=== PATIENT | female | born 1995 | race Two or more races ===

== ENCOUNTER 2024-08-13 03:32 | Emergency (ER) | payer MEDICAID, SELFPAY ==
[2024-08-13 00:49] VITALS: BMI 30.3
[2024-08-13 01:00] VITALS: BP 96/50; PULSE 85; RESP 19; TEMP 36.7; O2SAT 98
[2024-08-13 01:16] VITALS: BP 95/62; PULSE 77
[2024-08-13 01:19] VITALS: BMI 19.5
[2024-08-13 01:20] VITALS: TEMP 36.5
--- NOTE | 2024-08-13 03:43 | PC.NURSE ---
Pt was sent down from OB but never checked in with triage nurse. per registration pt was seen walking out of the er and not returning to get seen by ER provider.
== END 2024-08-13 03:46 | disposition left against medical advice (07) ==
LOC: SERX 03:42
PROVIDERS: Emergency Provider Emergency Medicine
DX: O99.891 Other specified diseases and conditions complicating pregnancy (principal); R51.9 Headache, unspecified; Z3A.30 30 weeks gestation of pregnancy; Z53.29 Procedure and treatment not carried out because of patient's decision for other reasons
CPT/HCPCS: 59025; 99281

== ENCOUNTER 2024-08-15 19:00 | Observation (INO) | payer MEDICAID, SELFPAY ==
[2024-08-15 19:10] VITALS: BP 104/66; PULSE 77
[2024-08-15 19:14] VITALS: BMI 19.7
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
[2024-08-15 19:47] VITALS: TEMP 37.1
[2024-08-15 21:39] VITALS: BP 93/55; PULSE 77
[2024-08-15 22:10] VITALS: BP 110/57; PULSE 83
[2024-08-16] VITALS (9 sets, daily range): BP systolic 89–103; BP diastolic 54–66; PULSE 76–107; RESP 16; TEMP 36.5
[2024-08-16] MEDS: RINGERS LACTATED 1000 ML 1,000 ML 999 ML IV (06:09)
[2024-08-16] MEDS: NIFEdipine 10 MG CAPSULE 20 MG PO (06:48)
[2024-08-16] MEDS: BETAMET ACET/BETAMET NA PH (Celestone) 6 MG/ML VIAL 12 MG IM (06:53)
--- NOTE | 2024-08-16 07:23 | PC.NURSE ---
pt AAOX3, denies LOF, BLOOD AND DISCHARGE. PT DENIES HEADACHE, AND VISION CHANGES. TEMP WITHIN NORMAL RANGE. T-97.7F.BP LOW. PT STATED THIS IS HER NORMAL RANGE. PT INSTRUCTED TO NOTIFY NURSE OF ANY CHANGES.
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
[2024-08-16] MEDS: SODIUM CHLORIDE 0.9% 1000 ML 1,000 ML 999 ML IV (10:02)
[2024-08-16] MEDS: SODIUM CHLORIDE 0.9% 1000 ML 1,000 ML 125 ML IV (11:08)
== END 2024-08-16 13:05 | disposition home or self-care (01) ==
PROVIDERS: Admitting Provider Obstetrics & Gynecology; PCP Family Medicine; Visit Provider Obstetrics & Gynecology
DX: O9A.213 Injury, poisoning and certain other consequences of external causes complicating pregnancy, third trimester (principal); S39.92XA Unspecified injury of lower back, initial encounter; V89.2XXA Person injured in unspecified motor-vehicle accident, traffic, initial encounter; O09.93 Supervision of high risk pregnancy, unspecified, third trimester; O34.219 Maternal care for unspecified type scar from previous cesarean delivery; Z3A.31 31 weeks gestation of pregnancy
CPT/HCPCS: 59025; 59899; 76805; 96360; 96372; J0702; J7030; J7120; A9270

== ENCOUNTER 2024-09-10 18:17 | Observation (INO) | payer MEDICAID, SELFPAY ==
[2024-09-10] VITALS (22 sets, daily range): BP systolic 98; BP diastolic 67; PULSE 85–105; RESP 20; TEMP 36.4; O2SAT 93–100; BMI 19.8
--- NOTE | 2024-09-10 18:39 | XR_ITS ---
Examination: Complete OB ultrasound greater than 14 weeks Date and time of exam: September 10, 2024 1904 hrs. Indications: Labor evaluation with pelvic contractions and vaginal bleeding today Findings: Viable intrauterine single fetus with single amniotic sac presentation cephalic Cardiac motion 147 BPM Placenta fundal grade 2 Umbilical cord insertion 3 vessel seen Amniotic fluid index 12.2 cm Cervix 3.7 cm. Composite estimated gestational age based on BPD, head circumference, abdominal circumference, femur length is 35 weeks 0 days Estimated weight 2491.1 g Ovaries obscured by bowel gas. Survey of intracranial anatomy, spinal anatomy, abdominal anatomy, four-chamber heart performed with no abnormalities identified. Impression: Viable intrauterine gestation cephalic presentation Placenta fundal grade 2 no abruption Estimated gestational age 35 weeks 0 days Estimated weight 2491.1 g.
[2024-09-10] MEDS: RINGERS LACTATED 1000 ML 1,000 ML 999 ML IV (20:15)
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
[2024-09-10 21:41] LABS: Bilirubin,Urine Negative (Negative); Blood,Urine Negative (Negative); Clarity,Urine Clear (Clear/Hazy); Glucose, Urine 3+ (Negative); Ketones,Urine Negative (Negative); Leukocyte Esterase,Urine Negative (Negative); Nitrite,Urine Negative (Negative); PH,Urine 7.5 (5.0-7.0); Protein,Urine Negative (Neg - Trace); RBC,Urine 1 /hpf (0-3); Specific Gravity,Urine 1.015 (1.001-1.035); Squamous Epithelial Cell,Urine 3 /hpf (0-5); WBC,Urine < 1 /hpf (0-5)
[2024-09-10 21:49] LABS: Collection Type, Urine CLEAN BATCH; Color,Urine Yellow (Lt Yel-Yel)
== END 2024-09-10 21:00 | disposition home or self-care (01) ==
PROVIDERS: Admitting Provider Obstetrics & Gynecology; PCP Family Medicine; Visit Provider Obstetrics & Gynecology
DX: O26.893 Other specified pregnancy related conditions, third trimester (principal); R10.2 Pelvic and perineal pain; Z3A.35 35 weeks gestation of pregnancy
CPT/HCPCS: 59025; 59899; 76805; 81001; J7120

== ENCOUNTER 2024-09-20 15:04 | Observation (INO) | payer MEDICAID, SELFPAY ==
[2024-09-20 15:04] VITALS: BP 107/72; RESP 16; RESP 99; TEMP 36.7
[2024-09-20 15:16] VITALS: BP 107/72; PULSE 88
[2024-09-20 15:28] VITALS: BMI 20.2
[2024-09-20 15:31] LABS: ROM Kit Lot # 57809118
[2024-09-20 15:32] LABS: ROM Swab Mixed By: LOEFL; Rupture of Fetal Membranes Negative (Negative); Swb Mxed in Solvent 1 min? Yes
[2024-09-20] MEDS: RINGERS LACTATED 1000 ML 1,000 ML 999 ML IV (15:50)
[2024-09-20 16:04] LABS: Collection Type, Urine Clean Catch
[2024-09-20 16:18] VITALS: PULSE 88
[2024-09-20] MEDS: TERBUTALINE SULF INJ 1 MG/ML VIAL 0.25 MG SC (16:18)
[2024-09-20 16:23] LABS: Bacteria,Urine Rare; Bilirubin,Urine Negative (Negative); Blood,Urine Negative (Negative); Clarity,Urine Clear (Clear/Hazy); Color,Urine Yellow (Lt Yel-Yel); Glucose, Urine Trace (Negative); Ketones,Urine Trace (Negative); Leukocyte Esterase,Urine Positive (Negative); Nitrite,Urine Negative (Negative); PH,Urine 6.5 (5.0-7.0); Protein,Urine 1+ (Neg - Trace); RBC,Urine 1 /hpf (0-3); Specific Gravity,Urine 1.029 (1.001-1.035); Squamous Epithelial Cell,Urine 8 /hpf (0-5); WBC,Urine 3 /hpf (0-5)
[2024-09-20 16:41] VITALS: BP 108/59; PULSE 101
[2024-09-20 17:18] VITALS: BP 117/73; PULSE 96
--- NOTE | 2024-09-20 17:57 | PD.LDPN ---
Documentation for date of: 09/20/24 OB Labor Progress Note Pain Control Comments: 29 yo at 36+1 presents with contractions. Preg c/b Hx of prior CD at term Patient has been having contractions, last seen at 34 weeks and FT dilated. No bleeding. Does report some LOF. Normal movement. She has missed some appointments recently due to being rescheduled. Pelvic Exam Comments: GEN: NAD RESP: normal work of breathing ABDsoft, gravid, non tender over prior incision EXT: no calf swelling SVE: 1cm/FT, long, high FHT: Reactive, mod variability [place]: irregular -> s/p IV hydration -> quiet AMnisure: negative Assessment and Plan Comments: 29 yo at 36+1 presents with contractions with no signs of labor or rupture of membranes. contractions, now resolved - Resolved after IVF and terb x1 - No signs of PTL with multiple serial SVE (also unchanged from 34 weeks) - No signs of uterine rupture clinically, on FHT, or on exam - Discharged home in stable condition with close follow-up- strongly recommended earlier follow-up given contractions in the setting of c/s x1. Return precautions reviewed FWB: Reactive, normal baseline, no decels
== END 2024-09-20 18:15 | disposition home or self-care (01) ==
PROVIDERS: Admitting Provider Obstetrics & Gynecology; Visit Provider Obstetrics & Gynecology
DX: O47.03 False labor before 37 completed weeks of gestation, third trimester (principal); Z3A.34 34 weeks gestation of pregnancy
CPT/HCPCS: 59025; 59899; 81001; 84112; 96372; J3105; J7120

== ENCOUNTER 2024-10-27 17:48 | Emergency (ER) | payer MEDICAID, SELFPAY ==
[2024-10-27 19:22] VITALS: BP 101/72; PULSE 90; RESP 18; TEMP 36.8; O2SAT 99
--- NOTE | 2024-10-27 19:45 | XR_ITS ---
Examination: Breast ultrasound, unilateral, right Date and time of exam: October 27, 2024 at 2026 hrs. Indications: Right breast swelling and tenderness beginning 2 days ago, patient is nursing Technique: Real-time flores scale ultrasonographic imaging performed right breast including all 4 quadrants as well as nipple retroareolar and axillary region. Findings: No cystic or solid mass no abscess Prominent ducts in the retroareolar region redness in the 5 to 10:00 position, possible mastitis Impression: No breast abscess noted
--- NOTE | 2024-10-27 19:46 | PD.EDRME ---
Rapid Medical Screening Exam RME Arrival date/time: 10/27/24 17:48 29-year-old female with breast implants and currently nursing reports with complaint of right breast swelling and pain x 2 days Chief Complaint: General Adult/Misc Complain Time Seen by Provider: 10/27/24 17:56 Vital signs: Vital Signs Temperature 98.2 F 10/27/24 19:22 Pulse Rate 90 10/27/24 19:22 Respiratory Rate 18 10/27/24 19:22 Blood Pressure 101/72 10/27/24 19:22 Pulse Oximetry (%) 99 10/27/24 19:22 Oxygen Delivery Method Room Air 10/27/24 19:22
[2024-10-27] MEDS: KETOROLAC INJ 60 MG/2 ML VIAL 30 MG IM (20:51)
[2024-10-27 22:59] LABS: Red Blood Count 4.95 Miln/mm3 (4.00-5.20); White Blood Count 13.2 Thou/mm3 (3.6-11.0)
[2024-10-27 23:00] LABS: Basophils % (Auto) 0 % (0-2.5); Eosinophils # (Auto) 0.1 Thou/mm3 (0.0-0.5); Eosinophils % (Auto) 1 % (0-10); Hematocrit 39.4 % (36.0-46.0); Hemoglobin 12.1 g/dL (12.0-16.0); Immature Granulocytes % (Auto) 0 % (0-0); Immature Granulocytes Auto 0.05 Thou/mm3 (0.00-0.00); Lymphocytes # (Auto) 0.9 Thou/mm3 (1.0-4.8); Lymphocytes % (Auto) 7 % (10-50); Mean Corpuscular HGB Conc 30.7 g/dl (31.0-37.0); Mean Corpuscular Hemoglobin 24.4 pg (25.0-35.0); Mean Corpuscular Volume 80 fL (80-100); Monocytes # (Auto) 0.8 Thou/mm3 (0.0-0.8); Monocytes % (Auto) 6 % (0-12); Neutrophils # (Auto) 11.3 Thou/mm3 (1.8-7.7); Neutrophils % (Auto) 86 % (37-80); Nucleated Red Blood Cell % 0 /100 WBC (0); Platelet Count 296 Thou/mm3 (140-440); RDW Standard Deviation 43.7 fL (36.4-46.3)
[2024-10-27 23:01] LABS: Anion Gap 9 (7-16); BUN/Creatinine Ratio 15 Ratio (12-20); Blood Urea Nitrogen 12 mg/dL (9-23); Calcium 9.6 mg/dL (8.3-10.6); Carbon Dioxide 26.3 mMol/L (20.0-31.0); Chloride 105 mMol/L (98-107); Creatinine (Component) 0.8 mg/dL (0.6-1.3); Glucose 132 mg/dL (74-106); Osmolality,Calculated 281 (275-295); Potassium 3.7 mMol/L (3.4-5.1); Sodium 140 mMol/L (136-145); eGFR > 60 See Note
[2024-10-27 23:06] VITALS: BP 118/76; PULSE 115; RESP 20; TEMP 38.2; O2SAT 97
--- NOTE | 2024-10-27 23:23 | PD.EDADULT ---
ED General RME/HPI General Chief complaint: General Adult/Misc Complain Stated complaint: RIGHT BREAST PAIN, SWELLING, DISCOLORATION Time Seen by Provider: 10/27/24 17:56 Arrival date/time: 10/27/24 17:48 29-year-old female with a history of breast implants and currently nursing a 3-week-old presents with complaint of right breast swelling and pain x 2 days. Patient denies any fever or chills discharge from nipples redness or abnormal shaped lumps or masses. Patient states the pain has gotten increasingly worse over the last 24 hours. Patient states that she has been taken Tylenol with no improvement of symptoms RME / HPI RME / HPI narrative: 10/27/24 17:48 29-year-old female with breast implants and currently nursing reports with complaint of right breast swelling and pain x 2 days Related Data Home Medications ?Medication ?Instructions ?Recorded ?Confirmed vit no.95-ferrous 1 tab PO DAILY 04/27/24 09/20/24 fumarate 28 mg-folic acid 800 mcg tablet () Previous Rx's ?Medication ?Instructions ?Recorded sulfamethoxazole 800 1 tab PO BID 10 days #20 tabs 10/27/24 mg-trimethoprim 160 mg tablet (Bactrim DS) Allergies Allergy/AdvReac Type Severity Reaction Status Date / Time No Known Drug Allergies Allergy Verified 09/20/24 15:32 Review of Systems Constitutional Constitutional: Denies chills, Denies fever(s) and Denies headache(s) ENT Ears, Nose, Mouth, and Throat: Denies headache(s), Denies neck pain and Denies vertigo Cardiovascular Cardiovascular: Denies chest pain, Denies claudication and Denies dyspnea Respiratory Respiratory: Denies cough and Denies dyspnea Gastrointestinal Gastrointestinal: Denies nausea and Denies vomiting Genitourinary Genitourinary: Denies nipple discharge Musculoskeletal Musculoskeletal: Denies myalgias and Denies neck pain Integumentary/Breasts Skin/Breast: Denies breast mass, Reports breast pain, Reports breast swelling and Denies nipple discharge Neurologic Neurologic: Denies headache(s) and Denies vertigo Hematologic/Lymphatic Hematologic/Lymphatic: Denies easy bleeding and Denies easy bruising Course Course Course Narrative: 26-year-old female with a history of breast implants and is currently nursing a 3-week old reports with complaint of right breast symptoms. Patient's CBC indicates elevated white cell count BMP unremarkable ultrasound of the right breast shows intact implant however mastitis is noted. Patient reports that she also feeds the child Enfamil formula and will stop breast-feeding until treatment with the antibiotics is complete. She also reports that her surgeon is located in [facility] she does have an appointment with that doctor within 24 hours. She is currently stable nontoxic-appearing with stable vital signs. Discussed treatment plan with Dr. HAMMER who agreed that the patient can be discharged home on oral medications but she is advised that if symptoms should worsen she is to return to the emergency department immediately for inpatient treatment as she will have failed outpatient treatment. Pt verbalized understanding Quality Measures none Orders Category Date Time Status US breast RT complete Stat Exams 10/27/24 19:45 Completed BMP [Basic Metabolic Panel] Stat Lab 10/27/24 22:38 Completed CBC Stat Lab 10/27/24 22:38 Completed HYDROcodone*/APAP 5/325 [[place] 5/325] Med 10/27/24 23:00 Discontinued 1 tab PO X1 ONE Ketorolac Inj [Toradol Inj] Med 10/27/24 19:44 Discontinued 30 mg IM X1 ONE Trimethoprim/Sulfa 160/800 Ds [Bactrim Ds] Med 10/27/24 23:20 Discontinued 1 tab PO X1 ONE cefTRIAXone [Rocephin] 2 gm Med 10/27/24 23:11 Discontinued SODIUM CHLORIDE 0.9% (Popper) [NS 0.9% (Popper)] 50 ml IV QDAY Vital Signs Vital signs: Vital Signs Temperature 98.2 F 10/27/24 19:22 Pulse Rate 90 10/27/24 19:22 Respiratory Rate 18 10/27/24 19:22 Blood Pressure 101/72 10/27/24 19:22 Pulse Oximetry (%) 99 10/27/24 19:22 Oxygen Delivery Method Room Air 10/27/24 19:22 [facility] Patient data External records reviewed:: None Clinical information provided by:: patient Social determinants that could affect healthcare access:: none Patient has the following chronic illnesses:: none How is presenting disease/condition affected by chronic disease/condition?: no chronic disease Evaluation data The following diagnostics were reviewed and interpreted by me:: lab results and radiology exam(s) Lab and/or radiology exams considered but not ordered:: none Interpretation Summary: Mastitis Medications Medications considered but not ordered:: none Medication administrations:: Medication Administration History Discontinued Medications Hydrocodone Bitart/Acetaminophen (Hydrocodone/Apap 5/325 Tablet) 1 tab PO X1 ONE Stop: 10/27/24 23:01 Last Admin: 10/27/24 23:27 Dose: 1 tab Documented By: BEV Ceftriaxone Sodium 2 gm/ (Sodium Chloride) 50 mls @ 100 mls/hr IV QDAY JUDY Stop: 11/03/24 23:10 Last Admin: 10/27/24 23:19 Dose: Not Given Documented By: CHEMA Non-Admin Reason: Cancelled by Provider Ketorolac Tromethamine (Ketorolac Inj 60 Mg/2 Ml Vial) 30 mg IM X1 ONE Stop: 10/27/24 19:45 Last Admin: 10/27/24 20:51 Dose: 30 mg Documented By: MYKE Trimethoprim/Sulfamethoxazole (Trimethoprim/Sulfa 160/800 Ds Tablet) 1 tab PO X1 ONE Stop: 10/27/24 23:21 Last Admin: 10/27/24 23:27 Dose: 1 tab Documented By: BEV as above Consultations Consultation(s) initiated? (list below): No Diagnosis Differential Diagnosis ED Complaint MDM: Complications of implant Most likely diagnosis given after review of the tests above:: Mastitis Admission Indicated Admission indicated?: not indicated Explain why admission is indicated or not indicated:: mastitis appears to be due to nursing as US revealed no abnormalities Admission Request Was there a request for admission?: No Disposition Plan Disposition Plan: Discharge Discharge Attestation Discharge Attestation: The patient and all family members were given an opportunity to ask questions and understood the discharge instructions. Discharge instructions specifically effects, indications for sooner follow up or return to the emergency department, and the expected course of current diagnosis. Patient condition: Stable Medical Decision Making Differential Diagnosis Differential Diagnosis: Complications of implant Lab Data 10/27/24 22:38 10/27/24 22:38 Labs: Lab Results 10/27/24 Range/Units 22:38 WBC 13.2 H (3.6-11.0) Thou/mm3 RBC 4.95 (4.00-5.20) Miln/mm3 Hgb 12.1 (12.0-16.0) g/dL Hct 39.4 (36.0-46.0) % MCV 80 (80-100) fL MCH 24.4 L (25.0-35.0) pg MCHC 30.7 L (31.0-37.0) g/dl RDW Std Deviation 43.7 (36.4-46.3) fL Plt Count 296 (140-440) Thou/mm3 Neut % (Auto) 86 H (37-80) % Lymph % (Auto) 7 L (10-50) % [place] % (Auto) 6 (0-12) % Eos % (Auto) 1 (0-10) % Baso % (Auto) 0 (0-2.5) % Neut # (Auto) 11.3 H (1.8-7.7) Thou/mm3 Lymph # (Auto) 0.9 L (1.0-4.8) Thou/mm3 [place] # (Auto) 0.8 (0.0-0.8) Thou/mm3 Eos # (Auto) 0.1 (0.0-0.5) Thou/mm3 Baso # (Auto) 0.0 (0.0-0.2) Thou/mm3 Immature Gran # (Auto) 0.05 H (0.00-0.00) Thou/mm3 Absolute Nucleated RBC 0.00 (0.00-0.00) Thou/mm3 Immature Gran % 0 (0-0) % Nucleated RBC % 0 (0) /100 WBC Sodium 140 (136-145) mMol/L Potassium 3.7 (3.4-5.1) mMol/L Chloride 105 (98-107) mMol/L Carbon Dioxide 26.3 (20.0-31.0) mMol/L Anion Gap 9 (7-16) BUN 12 (9-23) mg/dL Creatinine 0.8 (0.6-1.3) mg/dL Estim Creat Clear Calc Not Performed. eGFR > 60 (60 - ) See Note BUN/Creatinine Ratio 15 (12-20) Ratio Glucose 132 H (74-106) mg/dL Calculated Osmolality 281 (275-295) Calcium 9.6 (8.3-10.6) mg/dL Discharge Plan Plan Patient Disposition: HOME (Self Care) Prescriptions/Referrals Prescriptions/Med Rec: New sulfamethoxazole-trimethoprim [Bactrim DS] 800-160 mg tablet 1 tab PO BID 10 Days Qty: 20 0RF No Action PNV cmb#95-ferrous fumarate-FA [] 28 mg iron- 800 mcg tablet 1 tab PO DAILY Patient Comments: TAKE 1 TABLET BY MOUTH EVERY DAY Referrals: Chivo Otero MD [Primary Care Provider] - 10/28/24 Problem List Clinical Impression: Mastitis Patient/Caregiver Discharge Instructions Discharge Activity: activity as tolerated Education Materials: ED Mastitis Additional Instructions: Drink plenty of fluids take medication as directed avoid nursing the baby be sure to only feed Enfamil, pump and dump breastmilk follow-up in 24 hours with your primary care provider your plastic surgeon or return to the emergency department. Also return to the emergency department if symptoms should worsen Print Language: Bel[place]ian Stand Alone Forms: Maria T Award Info., Patient Portal Info Letter
[2024-10-27] MEDS: HYDROcodone/APAP 5/325 TABLET 1 TAB PO (23:27)
[2024-10-27] MEDS: TRIMETHOPRIM/SULFA 160/800 DS TABLET 1 TAB PO (23:27)
[2024-10-27 23:54] VITALS: BP 100/70; PULSE 105; RESP 18; TEMP 37.7; O2SAT 97
== END 2024-10-27 23:55 | disposition home or self-care (01) ==
PROVIDERS: Physician Assistant; Emergency Provider Emergency Medicine; PCP Family Medicine
DX: N61.0 Mastitis without abscess (principal); Z98.82 Breast implant status
CPT/HCPCS: 36415; 76641; 80048; 85025; 96372; 99284; J1885; A9270